=== PATIENT | female | born 1950 | race Caucasian/White ===

== ENCOUNTER → 2018-02-09 | Outpatient (CLI) | payer OTHER, MEDICAID ==
--- NOTE | 2018-02-09 15:58 | MRI ---
STUDY: MRI OF THE LUMBAR SPINE HISTORY: Pain in back and right lower extremity. Comparison: None. Technique: Multiplanar multi-sequence MRI of the lumbar spine was performed. Sagittal T1, sagittal T 2, and STIR images, axial T1, and axial T2 images were obtained. Findings: Sagittal images: There is a lumbar levoscoliosis. Vertebral body heights and alignment are within normal limits. Marro w signal is heterogeneous. Several hemangiomas are identified. There is multilevel degenerative endp late change identified, mostly chronic in appearance. There is multilevel degenerative disc disease, most notable at L4/5 and L5/S1. The conus medullaris is normal in appearance terminating at the level of L1/2. Axial images: T12 -- L1: There is a shallow disc bulge, bilateral facet arthropathy and ligamentum flavum infolding . The central canal and neural foramina are adequate. L1 -- L2: There is a broad-based disc bulge with focal central disc herniation. Overall, there is mil d spinal stenosis. There is mild bilateral neural foraminal stenosis. L2 -- L3: There is a broad-based disc bulge, bilateral facet arthropathy and ligamentum flavum infold ing. The central canal is adequate. There is moderate right neural foraminal stenosis. Left neural fo ramen is adequate. L3 -- L4: There is a broad-based disc bulge with left paracentral disc herniation. This results in mo derate spinal stenosis. There is mild right and moderate left neural foraminal stenosis. L4 -- L5: There is a broad-based disc bulge asymmetric to the left lateral recess. This results in mi ld central canal stenosis. The right neural foramen is adequate. There is severe left neural foramina l stenosis. L5 -- S1: There is no significant disc bulge. There is bilateral facet arthropathy and ligamentum fla vum infolding. The central canal and right neural foramina are adequate. There is moderate left neura l foraminal stenosis. IMPRESSION: 1. Lumbar levoscoliosis, with multilevel lumbar spondylosis. 2. Moderate spinal stenosis at L3/4. 3. Multilevel neural foraminal stenosis, most severe at L4/5. Please see above for detail. Reported By:
== END | disposition home or self-care (01) | DRG 552 ==
LOC: RAD 12:32
PROVIDERS: ATTEND Psychiatry & Neurology Neurology
DX: M54.89 Other dorsalgia (principal); M79.604 Pain in right leg; M47.896 Other spondylosis, lumbar region; M48.061 Spinal stenosis, lumbar region without neurogenic claudication
CPT/HCPCS: 72148